=== PATIENT | female | born 1945 | race Caucasian/White ===

== ENCOUNTER → 2017-01-24 | Outpatient (CLI) | payer MEDICARE, BC | LOC: HEART 5 13:16 | DX: J42 Unspecified chronic bronchitis (principal); R94.2 Abnormal results of pulmonary function studies | CPT/HCPCS: 94010 ==

== ENCOUNTER → 2017-03-09 | Outpatient (CLI) | payer MEDICARE | LOC: MAMO 14:49 | DX: Z12.31 Encounter for screening mammogram for malignant neoplasm of breast (principal); Z90.710 Acquired absence of both cervix and uterus | CPT/HCPCS: G0202 ==

== ENCOUNTER 2017-04-25 08:04 | Emergency (ER) | payer MEDICARE, BC ==
[2017-04-25 09:55] LABS: BUN/CREATININE RATIO 27 (0-10)
[2017-04-25 09:57] LABS: HEMOGLOBIN 13.9 gm/dl (12.3-15.3); RED BLOOD COUNT 5.49 M/UL (4.00-5.10); WHITE BLOOD COUNT 8.9 K/UL (4.5-11.0)
== END 2017-04-25 13:00 | disposition home or self-care (01) ==
LOC: ER1 08:04
PROVIDERS: Family Medicine
DX: S22.32XA Fracture of one rib, left side, initial encounter for closed fracture (principal); S93.401A Sprain of unspecified ligament of right ankle, initial encounter; G47.30 Sleep apnea, unspecified; Z88.0 Allergy status to penicillin; Z79.82 Long term (current) use of aspirin; Z79.899 Other long term (current) drug therapy; W18.09XA Striking against other object with subsequent fall, initial encounter; Y93.01 Activity, walking, marching and hiking
CPT/HCPCS: 36415; 36600; 71250; 73610; 80053; 82550; 82553; 82803; 82962; 83874; 84484; 85025; 93005; 96374; 99284

== ENCOUNTER 2017-05-16 13:35 | Emergency (ER) | payer MEDICARE ==
[2017-05-16 14:21] LABS: HEMOGLOBIN 13.4 gm/dl (12.3-15.3); RED BLOOD COUNT 5.35 M/UL (4.00-5.10)
[2017-05-16 14:45] LABS: BUN/CREATININE RATIO 27 (0-10)
== END 2017-05-16 16:05 | disposition home or self-care (01) ==
LOC: ER1 13:35
PROVIDERS: Family Medicine
DX: S22.42XA Multiple fractures of ribs, left side, initial encounter for closed fracture (principal); I48.91 Unspecified atrial fibrillation; I10 Essential (primary) hypertension; W01.0XXA Fall on same level from slipping, tripping and stumbling without subsequent striking against object, initial encounter; Y92.008 Other place in unspecified non-institutional (private) residence as the place of occurrence of the external cause
CPT/HCPCS: 36415; 71010; 71101; 80053; 82550; 82553; 83874; 84484; 85025; 85379; 93005; 99285